=== PATIENT | female | born 1970 | race Caucasian/White ===

== ENCOUNTER → 2017-08-26 | Outpatient (CLI) | payer OTHER | END | disposition home or self-care (01) | LOC: RAD 16:01 | DX: M17.0 Bilateral primary osteoarthritis of knee (principal) | CPT/HCPCS: 73562 ==

== ENCOUNTER 2018-02-22 21:58 | Emergency (ER) | payer OTHER ==
[~2018-02-22] VITALS: Ht 180.3 cm; Wt 140.6 kg
[~2018-02-22 21:58] MED LIST: CIPR500T PO; FERR325T58 PO; ONDA4TAB7 PO; PANT40TA3 PO
[2018-02-22 22:02] VITALS: BP 205/99
[2018-02-22] MEDS ORDERED: DEXAMETHASONE SOD PHOS 20 MG/5 ML VIAL. IV ONE (23:00)
[2018-02-22] MEDS ORDERED: KETOROLAC 15 MG/ML VIAL. IV ONE (23:00)
[2018-02-22] MEDS ORDERED: PROCHLORPERAZINE 10 MG/2 ML VIAL. IV ONE (23:00)
[2018-02-22] MEDS ORDERED: IV NORMAL SALINE 1000ML BAG 1,000 ML IV ONE (23:00)
--- NOTE | 2018-02-22 23:49 | RAD ---
CT head without intravenous contrast History: Migraine. Comparison: CT head February 13, 2014. Technique: Axial images are obtained of the head from the skull base through the vertex without IV contrast. Exposure: One or more of the following individualized dose reduction techniques were utilized for this examination: 1. Automated exposure control 2. Adjustment of the mA and/or kV according to patient size 3. Use of iterative reconstruction technique Findings: The ventricles are appropriate in size, shape, and location for the patient's age. No obvious intracranial mass, mass-effect, midline shift, hemorrhage or obvious acute infarction is identified. Basilar cisterns are patent. Bone windows demonstrate no acute calvarial abnormality. The visualized paranasal sinuses appear clear. Impression: No acute intracranial process. Please note that CT can be relatively insensitive to acute ischemic infarction for up to 24 hours after symptom onset. Electronically signed by: Joseph Lobo MD (02/22/2018 11:45 PM) [facility]
[2018-02-23] MEDS ORDERED: BUTA1CAP57 PO (00:10)
--- NOTE | 2018-02-23 00:10 | PHYS DOC ---
Past Medical History Past Medical History: Anemia, Hypertension Past Surgical History: Tubal ligation Alcohol Use: None Drug Use: None Adult General Chief Complaint Chief Complaint: HEADACHE HPI HPI Patient is a 47 year old female who presents to the emergency Department today with complaints of a headache in the right side of her forehead that feels like pressure behind her eye. Patient states she has a history of migraines, reports concern because the frequency of her migraines has been increasing over the last month and half. Patient states that the light bothers her eyes and she has been nauseated with this headache. She states that nothing seems to make the symptoms better. SHe denies any recent head injury or fall. Her last vision exam was over a year ago, she states that she feels like she has been straining her eyes to see recently. She denies any dizziness, vomiting, numbness, difficulty speaking, dysphasia, tingling, or weakness. States she does have a history of high blood pressure and did not take her blood pressure medication today. Review of Systems Review of Systems Constitutional: Denies fever or chills [] Eyes: Denies redness, or drainage; patient reports pain behind her right eye, photosensitivity, and recent straining with vision HENT: Denies nasal congestion or sore throat [] Respiratory: Denies cough or shortness of breath [] Cardiovascular: Denies chest pain GI: Denies abdominal pain, vomiting, or diarrhea; reports nausea with headache Musculoskeletal: Denies back pain or neck pain Integument: Denies rash or skin lesions [] Neurologic: Denies focal weakness, dizziness, or sensory changes; reports headache on the right side of her head for the last day and a half with history of migraines, reports increased headaches over the last month and a half [] All other systems were reviewed and found to be within normal limits, except as documented in this note. Current Medications Current Medications Current Medications Medications (Trade) Dose Ordered Sig/Mehrdad Start Time Stop Time Status Last Admin Dose Admin Dexamethasone Sodium Phosphate (Decadron) 10 mg 1X ONCE 02/22/18 23:00 02/22/18 23:01 DC 02/22/18 23:18 10 MG Ketorolac Tromethamine (Toradol 15mg Vial) 15 mg 1X ONCE 02/22/18 23:00 02/22/18 23:01 DC 02/22/18 23:12 15 MG Prochlorperazine Edisylate (Compazine) 10 mg 1X ONCE 02/22/18 23:00 02/22/18 23:01 DC 02/22/18 23:12 10 MG Sodium Chloride 1,000 ml @ 1,000 mls/hr 1X ONCE 02/22/18 23:00 02/22/18 23:59 DC 02/22/18 23:12 1,000 MLS/HR Allergies Allergies Allergies Coded Allergies Type Severity Reaction Last Updated Verified No Known Drug Allergies 02/13/14 No Physical Exam Physical Exam Constitutional: Well developed, well nourished, no acute distress, non-toxic appearance. [] HENT: Normocephalic, atraumatic, bilateral external ears normal, oropharynx moist, no oral exudates, nose normal. [] Eyes: PERRLA, EOMI, conjunctiva normal, no discharge. [] Neck: Normal range of motion, no tenderness, supple, no stridor. [] Cardiovascular:Heart rate regular rhythm, no murmur [] Lungs & Thorax: Bilateral breath sounds clear to auscultation [] Abdomen: Bowel sounds normal, soft, no tenderness, no masses, no pulsatile masses. [] Skin: Warm, dry, no erythema, no rash. [] Back: No tenderness, no CVA tenderness. [] Extremities: No tenderness, no cyanosis, no clubbing, ROM intact, no edema. [] Neurologic: Alert and oriented X 3, normal motor function, normal sensory function, no focal deficits noted. [] Psychologic: Affect normal, judgement normal, mood normal. [] Current Patient Data Vital Signs Vital Signs Date Time Temp Pulse Resp B/P (MAP) Pulse Ox O2 Delivery O2 Flow Rate FiO2 02/22/18 22:02 98.4 88 20 205/99 (134) 98 Room Air 98.4 EKG EKG [] Radiology/Procedures Radiology/Procedures PROCEDURE: CT HEAD WO CONTRAST CT head without intravenous contrast History: Migraine. Comparison: CT head February 13, 2014. Technique: Axial images are obtained of the head from the skull base through the vertex without IV contrast. Exposure: One or more of the following individualized dose reduction techniques were utilized for this examination: 1. Automated exposure control 2. Adjustment of the mA and/or kV according to patient size 3. Use of iterative reconstruction technique Findings: The ventricles are appropriate in size, shape, and location for the patient's age. No obvious intracranial mass, mass-effect, midline shift, hemorrhage or obvious acute infarction is identified. Basilar cisterns are patent. Bone windows demonstrate no acute calvarial abnormality. The visualized paranasal sinuses appear clear. Impression: No acute intracranial process. Please note that CT can be relatively insensitive to acute ischemic infarction for up to 24 hours after symptom onset.[] Course & Med Decision Making Course & Med Decision Making Pertinent Labs and Imaging studies reviewed. (See chart for details) dx: Migraine headache CT head was negative for any acute intracranial findings. Patient was given a liter of normal saline, 15 mg of Toradol, and 10 mg of Decadron IV. Patient reported relief of pain after these medications. Her blood pressure decreased throughout her visit at discharge her blood pressure is a 4/90. Patient was advised that she needs to follow up with her primary care doctor about her blood pressure. And to take her medications as prescribed. Prescription was written for Fioricet tablets. Patient was encouraged to go home and rest and increase fluids for the next few days. Follow-up with primary care doctor this week concerning hypertension and increased migraines. Patient was also encouraged to have her eyes checked as her most recent eye examination was over a year ago. Patient verbalized an understanding of home care, medications, follow-up, and return to ED instructions and was in agreement with the plan of care. [] Dragon Disclaimer Dragon Disclaimer This electronic medical record was generated, in whole or in part, using a voice recognition dictation system. Departure Departure Impression: Primary Impression: Migraine headache Additional Impression: Hypertension Disposition: 01 HOME, SELF-CARE Condition: IMPROVED Referrals: PAM MURPHY MD (PCP) Patient Instructions: Migraine Headache, [id number] Additional Instructions: Fill prescription and use as directed. Recommend an eye examination if you have not had one in the last year. Follow up with your PCP later this week about your high blood pressure. Home to rest, increase fluids. Return to the ER if your symptoms worsen. Scripts Butalb/Acetaminophen/Caffeine ([id number]) 1 Each Capsule 1 EACH PO QIDPRN PRN for HEADACHE for 5 Days, #16 CAP 0 Refills Prov: BILLY LÓPEZ APRN 02/23/18 Attending Signature Attending Signature I have reviewed the PA/ORNAMENTAL MACHINE OPERATOR's note and plan of care. I was available for consultation as needed during the patient's visit in the emergency department. I agree with the clinical impression, plan, and disposition. Problem Qualifiers Primary Impression: Migraine headache Migraine type: unspecified Status migrainosus presence: without status migrainosus Intractability: not intractable Qualified Codes: G43.909 - Migraine, unspecified, not intractable, without status migrainosus Additional Impression: Hypertension Hypertension type: unspecified Qualified Codes: I10 - Essential (primary) hypertension BILLY LÓPEZ APRN Feb 23, 2018 00:10 LAINEZYAMILA DO Feb 24, 2018 03:30
== END 2018-02-23 00:26 | disposition home or self-care (01) ==
LOC: ER 21:58
DX: G43.909 Migraine, unspecified, not intractable, without status migrainosus (principal); I10 Essential (primary) hypertension
CPT/HCPCS: 70450; 96374; 96375; 99284; J0780; J1100; J1885; J7030